=== PATIENT | female | born 1960 | race Caucasian/White ===

== ENCOUNTER 2019-12-25 22:19 | Emergency (ER) | payer BC ==
[2019-12-25 22:49] LABS: MEAN CELL VOLUME 86.5 fl (81.0-99.0); MEAN CORPUSCULAR HGB CONC 35.8 g/dl (33.0-37.0); MEAN PLATELET VOLUME 9.8 fl (9.6-12.3); PLATELET COUNT AUTOMATED 250 10*3/uL (130-400); RED BLOOD COUNT 4.16 10*6/uL (4.10-5.10); RED CELL DISTRI WIDTH 12.9 % (0-14.5); WHITE BLOOD COUNT 11.8 10*3/uL (4.8-10.8)
[2019-12-25 23:01] LABS: CREATININE 1.44 mg/dL (0.55-1.02); POTASSIUM 3.6 mmol/L (3.5-5.1)
[2019-12-25 23:15] LABS: PLATELET SUFFICIENCY NORMAL (NORMAL); TOTAL CELLS COUNTED 100 #CELLS
[2019-12-25 23:26] LABS: BILIRUBIN NEGATIVE (NEGATIVE); BLOOD 2+ (NEGATIVE); CLARITY SL CLOUDY (CLEAR); COLOR YELLOW (YELLOW); GLUCOSE NEGATIVE (NEGATIVE); KETONE NEGATIVE (NEGATIVE); LEUKO ESTERASE 2+ (NEGATIVE); NITRITE NEGATIVE (NEGATIVE); SPECIFIC GRAVITY 1.015 (1.005-1.030); UROBILINOGEN 0.2 E.U./dl (0.2-1.0)
[2019-12-25 23:41] LABS: BACTERIA TRACE; EPITHELIAL CELLS 21-30; RBC 16-20 rbc/hpf (0-2); WBC 21-30 wbc/hpf (0-5)
[2019-12-26] MEDS ORDERED: LEVAQUIN750 M1 PO (00:35)
[2019-12-26] MEDS ORDERED: PYRIDIUM200 M1 PO (00:35)
== END 2019-12-26 01:25 | disposition home or self-care (01) ==
LOC: ED 22:19
PROVIDERS: Emergency Medicine
DX: N12 Tubulo-interstitial nephritis, not specified as acute or chronic (principal)

== ENCOUNTER → 2020-07-10 | Outpatient (CLI) | payer BC ==
[~2020-07-10] MED LIST: AMBIEN10 M1 PO; CYMBALTA60 MG PO; ESTRACE1 M1 PO; LEVAQUIN750 M1 PO; LISINOPRIL-HCT1 EACH PO; LYRICA100 M1 PO; MEDROXYPROGEST2.5 MG PO; NEXIUM 24HR20 M1 PO; PEPCID40 MG PO; PYRIDIUM200 M1 PO; VALACYCLOVIR500 M1 PO
== END | disposition home or self-care (01) ==
LOC: COVID19 11:17
PROVIDERS: ATTEND Nurse Practitioner Family
DX: Z20.828 Contact with and (suspected) exposure to other viral communicable diseases (principal); J01.90 Acute sinusitis, unspecified

== ENCOUNTER 2020-07-14 15:14 | Emergency (ER) | payer BC ==
[~2020-07-14] VITALS: Ht 167.6 cm; Wt 65.8 kg
[~2020-07-14 15:14] MED LIST changes: -AMBIEN10 M1 PO; -CYMBALTA60 MG PO; -ESTRACE1 M1 PO; -LISINOPRIL-HCT1 EACH PO; -LYRICA100 M1 PO; -MEDROXYPROGEST2.5 MG PO; -NEXIUM 24HR20 M1 PO; -PEPCID40 MG PO; -VALACYCLOVIR500 M1 PO
[2020-07-14 16:18] LABS: BASO % 0.1 % (0.0-1.0); EOS % 0.1 % (1.0-4.0); HEMATOCRIT 45.2 % (37.0-47.0); LYMPH # 1.3 10*3/uL (1.3-4.4); LYMPH % 18.7 % (27.0-41.0); MEAN CELL VOLUME 85.9 fl (81.0-99.0); MEAN CORPUSCULAR HGB 29.8 pg (27.0-31.0); MEAN CORPUSCULAR HGB CONC 34.7 g/dl (33.0-37.0); MONO # 0.4 10*3/uL (0.1-1.0); MONO % 5.6 % (3.0-9.0); NEUT # 5.3 10*3/uL (2.3-7.9); NEUT % 75.4 % (47.0-73.0); PLATELET COUNT AUTOMATED 428 10*3/uL (130-400); RED BLOOD COUNT 5.26 10*6/uL (4.10-5.10); WHITE BLOOD COUNT 7.1 10*3/uL (4.8-10.8)
[2020-07-14 16:30] LABS: ACT PARTIAL THROMBO TIME 29.2 SECONDS (20.0-32.1)
[2020-07-14 16:34] LABS: ALBUMIN 4.3 gm/dl (3.1-4.5); ALKALINE PHOSPHATASE 85 U/L (45-117); BUN 15 mg/dl (7-24); CHLORIDE 104 mmol/L (98-107); CREATININE 0.99 mg/dL (0.55-1.02); LIPASE 92 U/L (73-393); POTASSIUM 3.7 mmol/L (3.5-5.1); SGOT/AST 15 IU/L (3-35); SGPT/ALT 20 U/L (12-78); SODIUM 138 mmol/L (136-145); TOTAL PROTEIN 8.2 gm/dL (6.4-8.2)
[2020-07-14 16:37] LABS: TROPONIN I < 0.015 ng/ml (<0.045)
[2020-07-14 18:04] LABS: BILIRUBIN Negative (Negative); BLOOD Negative (Negative); CLARITY Cloudy (Clear); COLOR Yellow (Yellow); GLUCOSE Negative (Negative); KETONE 3+ (Negative); LEUKO ESTERASE Trace (Negative); NITRITE Negative (Negative); SPECIFIC GRAVITY 1.025 (1.001-1.030)
[2020-07-14 18:14] LABS: BACTERIA 2+; EPITHELIAL CELLS 16-20; MUCOUS TRACE; RBC 0-2 rbc/hpf (0-2)
[2020-07-14] MEDS ORDERED: PEPCID40 MG PO (18:29)
[2020-07-14] MEDS ORDERED: CYMBALTA60 MG PO (18:30)
[2020-07-14] MEDS ORDERED: LISINOPRIL-HCT1 EACH PO (18:30)
[2020-07-14] MEDS ORDERED: NEXIUM 24HR20 M1 PO (18:31)
[2020-07-14] MEDS ORDERED: MEDROXYPROGEST2.5 MG PO (18:31)
[2020-07-14] MEDS ORDERED: AMBIEN10 M1 PO (18:32)
[2020-07-14] MEDS ORDERED: ESTRACE1 M1 PO (18:32)
[2020-07-14] MEDS ORDERED: LYRICA100 M1 PO (18:32)
[2020-07-14] MEDS ORDERED: VALACYCLOVIR500 M1 PO (18:33)
== END 2020-07-14 19:18 | disposition home or self-care (01) ==
LOC: ED 15:14
PROVIDERS: Emergency Medicine
DX: B34.9 Viral infection, unspecified (principal); R11.2 Nausea with vomiting, unspecified; Z79.899 Other long term (current) drug therapy; Z98.890 Other specified postprocedural states; Z98.51 Tubal ligation status

== ENCOUNTER 2022-10-08 20:04 | Emergency (ER) | payer BC ==
[~2022-10-08] VITALS: Ht 167.6 cm; Wt 65.8 kg
[~2022-10-08 20:04] MED LIST changes: +AMBIEN10 M1 PO; +CYMBALTA60 MG PO; +ESTRACE1 M1 PO; +LISINOPRIL-HCT1 EACH PO; +LYRICA100 M1 PO; +MEDROXYPROGEST2.5 MG PO; +NEXIUM 24HR20 M1 PO; +PEPCID40 MG PO; +VALACYCLOVIR500 M1 PO
== END 2022-10-08 21:10 | disposition home or self-care (01) ==
LOC: ED 20:04
DX: S05.01XA Injury of conjunctiva and corneal abrasion without foreign body, right eye, initial encounter (principal); I10 Essential (primary) hypertension; Z79.899 Other long term (current) drug therapy; Z98.51 Tubal ligation status; X58.XXXA Exposure to other specified factors, initial encounter; Y93.89 Activity, other specified; Y92.89 Other specified places as the place of occurrence of the external cause; Y99.8 Other external cause status

== ENCOUNTER → 2023-01-21 | Outpatient (CLI) | payer MEDICARE | END | disposition home or self-care (01) | LOC: US 01:56 | PROVIDERS: ATTEND Obstetrics & Gynecology | DX: N95.0 Postmenopausal bleeding (principal) ==